=== PATIENT | female | born 1960 | race Two or more races ===

== ENCOUNTER 2019-03-04 16:22 | Emergency (ER) | payer BC ==
[~2019-03-04] VITALS: Ht 157.5 cm; Wt 56.7 kg
[2019-03-04 16:25] VITALS: BP 118/76
[2019-03-04] MEDS ORDERED: HYDROcodone/Acetamin 5/325 tab ORAL ONE (16:45)
--- NOTE | 2019-03-04 17:30 | Emergency Room Report ---
History of Present Illness General Chief Complaint: Multiple Trauma/Fall Source: Patient Present Illness HPI 58 YO Female presents to the ED c/o 05/17 In severity pain to the left hand, left wrist and left knee pain, tenderness, swelling and bruising times one day. Patient status post mechanical trip and fall. Patient states that she did not hit her head she did not have a loss of consciousness. Patient denies midline neck or back pain. This patient reports that she is able to walk and that her left knee pain is not as severe as the pain she is experiencing in her hand. Pain is aggravated upon movement of the left hand or palpation. No other aggravating or relieving factors at this time Allergies: Coded Allergies: No Known Allergies (Unverified , 03/04/19) Patient History Past Medical History: see triage record Past Surgical History: none Pertinent Family History: none Now: No Reviewed Nursing Documentation: PMH: Agreed; PSxH: Agreed Nursing Documentation-PMH Past Medical History: No History, Except For History Of Psychiatric Problem: Yes - Depression Review of Systems All Other Systems: negative except mentioned in HPI Physical Exam Vital Signs Date Time Temp Pulse Resp B/P (MAP) Pulse Ox O2 Delivery O2 Flow Rate FiO2 03/04/19 16:25 98.1 109 20 118/76 (90) 95 Room Air Sp02 EP Interpretation: reviewed, normal General Appearance: no apparent distress, alert, GCS 15, non-toxic Head: normocephalic, atraumatic Eyes: bilateral eye normal inspection, bilateral eye PERRL ENT: hearing grossly normal, normal voice Neck: full range of motion Respiratory: lungs clear, normal breath sounds, speaking full sentences Cardiovascular #1: regular rate, rhythm, normal capillary refill Cardiovascular #2: 2+ radial (R), 2+ radial (L) Musculoskeletal: back normal, gait/station normal, normal range of motion, swelling - Left wrist and hand, tender - TTP to the left wrist laterally and the left hand at the 4th and 5th digits. Swelling and bruising noted. Neurologic: alert, oriented x3, responsive, motor strength/tone normal, sensory intact, normal gait, speech normal, grossly normal Psychiatric: judgement/insight normal Skin: no rash, warm/dry, well hydrated, other - bruising to the left wrist and hand. left 4th digit. , abrasions - superficial abrasion to the anterior left knee. Medical Decision Making PA Attestation Dr. King is my supervising Physician whom patient management has been discussed with. Diagnostic Impression: Primary Impression: Fracture of finger of left hand Qualified Codes: S62.615A - Displaced fracture of proximal phalanx of left ring finger, initial encounter for closed fracture Additional Impression: Left wrist sprain Qualified Codes: S63.502A - Unspecified sprain of left wrist, initial encounter ER Course 58 YO Female presents to the ED c/o 05/17 In severity pain to the left hand, left wrist and left knee pain, tenderness, swelling and bruising times one day. Patient status post mechanical trip and fall. Patient states that she did not hit her head she did not have a loss of consciousness. Patient denies midline neck or back pain. This patient reports that she is able to walk and that her left knee pain is not as severe as the pain she is experiencing in her hand. Pain is aggravated upon movement of the left hand or palpation. No other aggravating or relieving factors at this time Ddx considered but are not limited to Fracture, dislocation, contusion, Sprain/ Strain/Spasm, Vital signs: are WNL, pt. is afebrile H&PE are most consistent with musculoskeletal injury will perform imaging to r/ o fractures/dislocations. ORDERS: - X-rays-- left 4th digit proximal phalanx fx. ED INTERVENTIONS: - [place] PO -Ulnar gutter splint applied to the left wrist/hand by cook chill technician. Pt. remains neurovascularly intact. - Left arm Sling applied by cook chill technician. Pt. remains neurovascularly intact. DISCHARGE: At this time pt. is stable for d/c to home. Will provide printed patient care instructions, and any necessary prescriptions. Care plan and follow up instructions have been discussed with the patient prior to discharge. Other X-Ray Diagnostic Results Other X-Ray Diagnostic Results #1: X-Ray ordered: Left wrist # of Views/Limited Vs Complete: 3 View Indication: Pain EP Interpretation: Yes ANANT Xray: Interpretation reviewed, by supervising MD, and agrees with findings. Interpretation: no soft tissue swelling, no fractures Impression: No acute disease Electronically Signed by: Aura Bryan PA-C Other X-Ray Diagnostic Results #2: X-Ray ordered: Left Hand # of Views/Limited Vs Complete: 3 View Indication: Pain EP Interpretation: Yes ANANT Xray: Interpretation reviewed, by supervising MD, and agrees with findings. Interpretation: no dislocation, no soft tissue swelling, other - fx of the proximal 4th phalanx Impression: Other - abnormal Electronically Signed by: Aura Bryan PA-C Last Vital Signs Date Time Temp Pulse Resp B/P (MAP) Pulse Ox O2 Delivery O2 Flow Rate FiO2 03/04/19 16:38 109 20 Room Air 03/04/19 16:25 98.1 118/76 95 Status: improved Disposition: HOME, SELF-CARE Condition: Stable Scripts Ibuprofen* (MOTRIN*) 600 Mg Tablet 600 MG ORAL THREE TIMES A DAY, #30 TAB 0 Refills Prov: Aura Bryan 03/04/19 Hydrocodone Bit/Acetaminophen 5-325* (NORCO 5-325*) 1 Each Tablet 1 TAB ORAL Q6H PRN for For Pain, #12 TAB 0 Refills Prov: Aura Bryan 03/04/19 [facility]errals[facility] Patient Instructions: Finger Fracture, [id number], Wrist Sprain Additional Instructions: Take medications as directed. Follow up with an DIGITAL MEDIA REPRESENTATIVE in 3-5 days, even if your symptoms have resolved. If symptoms persist MRI may be required at the discretion of your PCP or Ortho Specialist. --Please review list of primary care clinics, if you do not already have a primary care provider who can give you an Orthopedic Referral. Return sooner to ED if new symptoms occur, or current symptoms become worse. Do not drink alcohol, drive, or operate heavy machinery while taking [place] as this may cause drowsiness. - Please note that this Emergency Department Report was dictated using [employer] operator hydroformer technology software, occasionally this can lead to erroneous entry secondary to interpretation by the dictation equipment. Aura Bryan March 04, 2019 17:30
[2019-03-04] MEDS ORDERED: NORCO 5-325 TA1 EACH ORAL (18:02)
[2019-03-04] MEDS ORDERED: IBUPROFEN600 MG ORAL (18:02)
[2019-03-04 18:12] VITALS: BP 115/86
--- NOTE | 2019-03-04 18:12 | NUR ---
ER DISCHARGE NOTE: Pt was seen due to left hand and left knee injury. Patient is cleared to be discharged per PA, pt is aox4, on room air, with stable vital signs. pt was given dc and prescription instructions, pt was able to verbalize understanding, pt id band removed. pt is able to ambulate with steady gait. pt took all belongings and left with her .
--- NOTE | 2019-03-05 10:33 | Diagnostic Imaging Report ---
Clinical Indication:Pain, status post fall Technique: 3 views of the left wrist Comparison: None Findings: No acute fractures. No dislocations. The joint spaces are preserved. Bones appear osteoporotic Impression: No acute process
--- NOTE | 2019-03-05 10:43 | Diagnostic Imaging Report ---
Indication: Left hand pain, status post fall Technique: 3 views left hand Comparison: none Findings: There is a minimally displaced fracture of the proximal shaft of the fourth proximal phalanx. No other acute fractures. No dislocations. Joint spaces are preserved. Impression: Positive for fourth proximal phalangeal fracture. This agrees with the preliminary interpretation reported by the emergency room physician in the electronic medical record
== END 2019-03-04 18:12 | disposition home or self-care (01) ==
LOC: EMR 17:05
DX: S62.615A Displaced fracture of proximal phalanx of left ring finger, initial encounter for closed fracture (principal); S63.502A Unspecified sprain of left wrist, initial encounter; W01.0XXA Fall on same level from slipping, tripping and stumbling without subsequent striking against object, initial encounter; Y92.9 Unspecified place or not applicable; F32.9 Major depressive disorder, single episode, unspecified
CPT/HCPCS: 29125; 99284